=== PATIENT | female | born 1970 | race Caucasian/White ===

== ENCOUNTER 2024-05-29 04:18 | Emergency (ER) | payer BC, SELFPAY ==
[2024-05-29 04:23] VITALS: PULSE 82; TEMP 36.6; O2SAT 100; BMI 32.6
[2024-05-29 04:27] VITALS: BP 140/98
[2024-05-29 04:47] LABS: Internal Control Within Normal Limits; Strep A Antigen Screen Negative
[2024-05-29 04:51] LABS: Internal Control Within Normal Limits; SARS-CoV-2 Ag NEGATIVE (NEGATIVE)
--- NOTE | 2024-05-29 05:00 | ED_ITS ---
HPI - URI/Sore Throat General Chief Complaint: Upper Respiratory Infection Stated Complaint: SORE THROAT Time Seen by Provider: 05/29/24 05:00 Source: patient Limitations: no limitations History of Present Illness HPI Narrative: presents with one day history of sore throat and cough. Feels like she is short of breath. No chest pain or nausea. No fever. Able to swallow Related Data Allergies Allergy/AdvReac Type Severity Reaction Status Date / Time minocycline Allergy Severe Swelling Verified 05/29/24 04:27 of Lip/Tongue/Throat Review of Systems ROS Status of ROS 10 or more systems reviewed and unremark able except as noted in history and below PFSH PFSH Social History Little interest or pleasure in doing things: not at all Feeling down, depressed, or hopeless: not at all Exam Constitutional Vital Signs, click to edit/add: Last Vital Signs Temp 97.8 F 05/29/24 04:23 Pulse 82 05/29/24 04:23 Resp 16 05/29/24 04:23 BP 140/98 H 05/29/24 04:27 Pulse Ox 100 05/29/24 04:23 O2 Del Method Room Air 05/29/24 04:23 Common normals: no apparent distress, average body habitus, oriented x3, no limitations, healthy appearing, alert and well nourished [facility] Common normals: normocephalic and head/scalp atraumatic Throat: posterior oropharynx normal Eye Common normals: PERRL and EOMs intact bilaterally Respiratory Common normals: normal respiratory effort, no retractions, no use of accessory muscles and clear to auscultation bilaterally Cardio Common normals: regular rate, regular rhythm, S1 normal heart sound and S2 normal heart sound GI Common normals: Normal to inspection, nondistended, normoactive bowel sounds present Extremity Common normals: normal to inspection Neuro Common normals: oriented x3, CN's II-XII intact bilaterally, moves all extremities and no focal motor deficits Psych Appearance: grossly normal Course Vital Signs Vital signs: Vital Signs Temperature 97.8 F 05/29/24 04:23 Pulse Rate 82 05/29/24 04:23 Respiratory Rate 16 05/29/24 04:23 Pulse Oximetry 100 05/29/24 04:23 Oxygen Delivery Method Room Air 05/29/24 04:23 Temperature 97.8 F 05/29/24 04:23 Pulse Rate 82 09/13/24 04:23 Respiratory Rate 16 05/29/24 04:23 Blood Pressure 140/98 H 05/29/24 04:27 Pulse Oximetry 100 05/29/24 04:23 Oxygen Delivery Method Room Air 05/29/24 04:23 MDM - URI/Sore Throat MDM Narrative Medical decision making narrative: patient presents from work with URI symptoms of cough, sore throat and sensation of shortness of breath. RA pulse ox 100%. Exam neg including clear throat. Strep swab and COVID19 swab neg. cxray clear and labs WNL. patient discharged home with working diagnosis of URI and advised to follow up with her doctor for recheck Lab Data Labs: Lab Results 05/29/24 05/29/24 Range/Units 04:30 05:10 WBC 7.7 (4.0-11.0) 10^3/uL RBC 3.77 L (4.20-5.40) 10^6/uL Hgb 11.4 L (12.0-16.0) g/dL Hct 34.5 L (36.0-48.0) % MCV 91.5 (81.0-99.0) fL MCH 30.2 (26.7-34.0) pg MCHC 33.0 (29.9-35.2) g/dL RDW 12.8 (11.0-15.0) % Plt Count 251 (150-450) 10^3/uL MPV 11.0 (9.5-13.5) fL Neut % (Auto) 49.9 (43.0-75.0) % Lymph % (Auto) 36.5 (20.5-60.0) % [place] % (Auto) 9.9 (1.7-12.0) % Eos % (Auto) 2.6 (0.9-7.0) % Baso % (Auto) 1.0 (0.2-2.0) % Neut # (Auto) 3.8 (1.4-6.5) 10^3/uL Lymph # (Auto) 2.8 (1.2-3.8) 10^3/uL [place] # (Auto) 0.8 (0.3-0.8) 10^3/uL Eos # (Auto) 0.2 (0.0-0.7) 10^3/uL Baso # (Auto) 0.1 (0.0-0.1) 10^3/uL Abs Immat Gran (auto) 0.01 (0.00-0.03) 10^3/uL Imm/Tot Granulo (auto) 0.1 (0.0-0.5) % Sodium 136 (136-145) mmol/L Potassium 3.4 L (3.5-5.1) mmol/L Chloride 101 (98-107) mmol/L Carbon Dioxide 28.7 (21.0-32.0) mmol/L Anion Gap 9.7 BUN 23.0 H (7.0-18.0) mg/dL Creatinine 0.65 (0.55-1.02) mg/dL Est GFR ( Amer) >60 (>=60) Est GFR (Non-Af Amer) >60 (>=60) BUN/Creatinine Ratio 35.4 Glucose 88 (74-106) mg/dL Calcium 9.0 (8.5-10.1) mg/dL SARS-CoV-2 Ag (CV2AG) Negative (NEGATIVE) Streptococcus Screen Negative Discharge Plan Discharge Chief Complaint: Upper Respiratory Infection Clinical Impression: Upper respiratory infection Patient Disposition: Home, Self-Care Print Language: Greenlandic Instructions: Upper Respiratory Infection (ED) Referrals: SADI CARPENTER DO [Primary Care Provider] - 1 week
--- NOTE | 2024-05-29 05:01 | XR_ITS ---
The [address] [address] Patient Name: SADA GILLETTE MRN: [id number] date: 1970 Sex: F Assigned Patient Location: ER Current Patient Location: ER Accession/Order Number: [id number] Exam Date: 05/29/2024 05:10 Report Date: 05/29/2024 05:30 At the request of: LEEANNA TAPIA Procedure: XR chest 2V EXAMINATION: XR chest 2V HISTORY: short of breath COMPARISON: No relevant comparison available. FINDINGS: LUNGS: No significant pulmonary parenchymal abnormalities. VASCULATURE: No increased pulmonary vasculature. PLEURA: No pneumothorax, effusion, or pleural thickening. CARDIAC: No cardiomegaly or cardiac silhouette abnormality. MEDIASTINUM: No visible mass or adenopathy. BONES: No fracture or visible bone lesion. OTHER: Negative. XR/XR chest 2V IMPRESSION: 1. No acute cardiopulmonary process. Electronically authenticated by: LYNN JON Date: 05/29/2024 05:30
[2024-05-29 05:17] LABS: Basophils Absolute Auto 0.1 10^3/uL (0.0-0.1); Eosinophils Absolute Auto 0.2 10^3/uL (0.0-0.7); Eosinophils Percent Auto 2.6 % (0.9-7.0); Hematocrit 34.5 % (36.0-48.0); Hemoglobin 11.4 g/dL (12.0-16.0); Immature Granulocytes Abs Auto 0.01 10^3/uL (0.00-0.03); Immature Granulocytes Pct Auto 0.1 % (0.0-0.5); Lymphocytes Absolute Auto 2.8 10^3/uL (1.2-3.8); Lymphocytes Percent Auto 36.5 % (20.5-60.0); Mean Corpuscular Hemoglobin 30.2 pg (26.7-34.0); Mean Corpuscular Volume 91.5 fL (81.0-99.0); Monocytes Absolute Auto 0.8 10^3/uL (0.3-0.8); Monocytes Percent Auto 9.9 % (1.7-12.0); Neutrophils Absolute Auto 3.8 10^3/uL (1.4-6.5); Neutrophils Percent Auto 49.9 % (43.0-75.0); Platelet Count 251 10^3/uL (150-450); Red Blood Count 3.77 10^6/uL (4.20-5.40); Red Cell Distribution Width 12.8 % (11.0-15.0); White Blood Count 7.7 10^3/uL (4.0-11.0)
[2024-05-29 05:33] LABS: Anion Gap 9.7; BUN Creatinine Ratio 35.4; Carbon Dioxide 28.7 mmol/L (21.0-32.0); Chloride 101 mmol/L (98-107); Estimated GFR (African America >60 (>=60); Estimated GFR (Non-African Ame >60 (>=60); Glucose 88 mg/dL (74-106); Potassium 3.4 mmol/L (3.5-5.1); Sodium 136 mmol/L (136-145)
== END 2024-05-29 06:14 | disposition home or self-care (01) ==
PROVIDERS: Emergency Provider Internal Medicine; PCP Family Medicine
DX: J06.9 Acute upper respiratory infection, unspecified (principal); Z20.822 Contact with and (suspected) exposure to COVID-19
CPT/HCPCS: 36415; 71046; 80048; 85025; 87070; 87811; 87880; 99284